=== PATIENT | female | born 1955 | race American Indian/Alaskan Native ===

== ENCOUNTER 2017-04-08 10:26 | Emergency (ER) | payer MEDICAID ==
[2017-04-08 11:33] LABS: Basophils % (Auto) 0.3 % (0.0-1.8); Eosinophils # (Auto) 0.1 K/mm3 (0.0-0.4); Eosinophils % (Auto) 2.1 % (0.0-4.3); Hematocrit 38.6 % (30.3-42.9); Hemoglobin 12.5 gm/dl (10.1-14.3); Lymphocytes # (Auto) 1.4 K/mm3 (1.2-5.4); Lymphocytes % (Auto) 32.3 % (13.4-35.0); Mean Corpuscular HGB Conc 32 % (30-34); Mean Corpuscular Volume 78 fl (79-97); Monocytes # (Auto) 0.6 K/mm3 (0.0-0.8); Platelet Count 339 K/mm3 (140-440); Red Blood Count 4.95 M/mm3 (3.65-5.03); Red Cell Distribution Width 16.2 % (13.2-15.2)
[2017-04-08 11:37] LABS: Mean Corpuscular Hemoglobin 25 pg (28-32)
[2017-04-08 11:53] LABS: Alanine Aminotransferase 19 units/L (7-56); BUN/Creatinine Ratio 14; Blood Urea Nitrogen 13 mg/dL (7-17); Calcium 9.2 mg/dL (8.4-10.2); Hemolysis Index 2
[2017-04-08 13:03] LABS: Bacteria,Urine 1+ /HPF (Negative); Bilirubin,Urine NEG (Negative); Blood,Urine NEG (Negative); Color,Urine Yellow (Yellow); Mucus,Urine FEW /HPF; Nitrite,Urine NEG (Negative); Protein,Urine <15 mg/dL mg/dL (Negative); Urobilinogen,Urine < 2.0 mg/dL (<2.0)
[2017-04-08] MEDS ORDERED: NORCO 7.5/325 PO ONE (13:16)
[2017-04-08] MEDS ORDERED: ZOFRAN ODT PO ONE (13:16)
--- NOTE | 2017-04-08 14:23 | Emergency Department Report ---
ED Abdominal Pain HPI - General Chief Complaint: Nausea/Vomiting/Diarrhea Stated Complaint: R SIDE PAIN Time Seen by Provider: 04/08/17 13:05 Source: patient Mode of arrival: Ambulatory Limitations: No Limitations - History of Present Illness Initial Comments: Patient is a 61-year-old Citizen Of [place] female who is presenting with right flank pain for several weeks. Patient states intermittently she has nausea vomiting as well. Patient states the pain is 8 out of 10 in severity is no radiation patient denies fever cough diarrhea body aches and sore throat at this time. Patient's pain is worse with eating fatty foods and cheese. Patient nothing makes the patient's pain any better - Related Data Previous Rx's Medication Instructions Recorded Last Taken Type HYDROcodone/APAP 5-325 [[place] 1 each PO Q6HR PRN #15 tablet 04/08/17 Unknown Rx 5/325] Ondansetron [Zofran Odt] 4 mg PO Q8HR #10 tab.rapdis 04/08/17 Unknown Rx Allergies Allergy/AdvReac Type Severity Reaction Status Date / Time No Known Allergies Allergy Verified 04/08/17 11:09 ED Review of Systems ROS: Stated complaint: R SIDE PAIN Other details as noted in HPI Comment: All other systems reviewed and negative ED Past Medical Hx - Past Medical History Previous Medical History?: Yes Hx Hypertension: Yes Hx Diabetes: Yes Hx Arthritis: Yes - Surgical History Past Surgical History?: Yes Additional Surgical History: - Social History Smoking Status: Never Smoker Substance Use Type: None - Medications Home Medications: Home Medications Medication Instructions Recorded Confirmed Last Taken Type HYDROcodone/APAP 5-325 [[place] 1 each PO Q6HR PRN #15 tablet 04/08/17 Unknown Rx 5/325] Ondansetron [Zofran Odt] 4 mg PO Q8HR #10 tab.rapdis 04/08/17 Unknown Rx ED Physical Exam - General Limitations: No Limitations General appearance: alert, in no apparent distress - Head Head exam: Present: atraumatic, normocephalic - Eye Eye exam: Present: normal appearance - ENT ENT exam: Present: mucous membranes moist - Neck Neck exam: Present: normal inspection - Respiratory Respiratory exam: Present: normal lung sounds bilaterally. Absent: respiratory distress, wheezes, rales, rhonchi - Cardiovascular Cardiovascular Exam: Present: regular rate, normal rhythm. Absent: systolic murmur, diastolic murmur, rubs, gallop - GI/Abdominal GI/Abdominal exam: Present: soft, tenderness (right upper quadrant), normal bowel sounds - Rectal Rectal exam: Present: deferred - Extremities Exam Extremities exam: Present: normal inspection - Back Exam Back exam: Present: normal inspection - Neurological Exam Neurological exam: Present: alert, oriented X3 - Psychiatric Psychiatric exam: Present: normal affect, normal mood - Skin Skin exam: Present: warm, dry, intact, normal color. Absent: rash ED Course Vital Signs 04/08/17 11:05 Temperature 98.5 F Pulse Rate 76 Respiratory 16 Rate Blood Pressure 153/95 O2 Sat by Pulse 99 Oximetry ED Medical Decision Making - Lab Data Result diagrams: 04/08/17 11:14 04/08/17 11:14 - Radiology Data Radiology results: report reviewed Small adherent gallstone versus polyp present. There is no signs of cholecystitis - Medical Decision Making Patient is a 61-year-old female who is presenting with right sided flank pain. Patient's laboratory studies are within normal limits. Patient does show a small gallstone. Patient will be discharged home with pain meds and has been counseled on low-fat diet Critical care attestation.: If time is entered above; I have spent that time in minutes in the direct care of this critically ill patient, excluding procedure time. ED Disposition Clinical Impression: Biliary colic Gallstone Qualifiers: Cholecystitis presence: without cholecystitis Biliary obstruction: without biliary obstruction Qualified Code(s): K80.20 - Calculus of gallbladder without cholecystitis without obstruction Disposition: - TO HOME OR SELFCARE Is pt being admited?: No Does the pt Need Aspirin: No Condition: Stable Instructions: Biliary Colic (ED), Low Fat Diet (ED) Prescriptions: HYDROcodone/APAP 5-325 [[place] 5/325] 1 each PO Q6HR PRN #15 tablet PRN Reason: Pain Ondansetron [Zofran Odt] 4 mg PO Q8HR #10 tab.rapdis Referrals: BRENNA GOLDSTEIN MD [Staff Physician] - 3-5 Days
--- NOTE | 2017-04-08 15:20 | Ultrasound Report ---
FINAL REPORT PROCEDURE: US ABDOMEN LIMITED TECHNIQUE: Real-time sonography was performed of the right upper quadrant with image documentation. CPT 27890 HISTORY: ruq pain COMPARISON: No prior studies are available for comparison. FINDINGS: There is a small echogenic foci seen within the gallbladder near the neck of the gallbladder posteriorly measuring 3.8 millimeters. This is nonmobile and does not casting acoustic shadow. This may represent a small polyp or possibly a small adherent gallstone. The gallbladder is otherwise unremarkable. Gallbladder wall does not appear to be thickened. No ascites is visualized. Common bile duct is normal caliber measuring 4 millimeters. Liver echogenicity appear normal. No masses are identified. The right kidney showed no abnormalities. Pancreas is poorly visualized due to body habitus and bowel gas.. IMPRESSION: Small echogenic foci seen in the gallbladder. This is nonmobile suggesting a small polyp or possibly small adherent gallstone. Gallbladder is otherwise unremarkable. No other abnormalities are identified. The pancreas was not visualized.
[2017-04-08] MEDS ORDERED: ULTRAM PO ONE (15:52)
[2017-04-08 16:36] VITALS: BP 148/78
== END 2017-04-08 16:37 | disposition home or self-care (01) ==
LOC: ED 10:26
DX: K80.20 Calculus of gallbladder without cholecystitis without obstruction (principal); I10 Essential (primary) hypertension; E11.9 Type 2 diabetes mellitus without complications; M19.90 Unspecified osteoarthritis, unspecified site
CPT/HCPCS: 36415; 76705; 80053; 81001; 83690; 85025; 99284; Q0162